=== PATIENT | male | born 1965 | race Caucasian/White ===

== ENCOUNTER 2018-08-11 20:22 | Observation (INO) | payer MEDICARE, OTHER ==
[2018-08-11 20:59] LABS: ADD MAN DIFF? NO
[2018-08-11 21:00] LABS: BASOPHILS % 0.2 % (0.0-2.0); EOSINOPHILS # 0.1 10^3/ul (0.0-0.5); EOSINOPHILS % 0.5 % (0.0-7.0); HEMATOCRIT 46.4 % (42.0-52.0); HEMOGLOBIN 14.2 g/dl (14.0-18.0); LYMPHOCYTES # 1.5 10^3/ul (0.8-2.9); LYMPHOCYTES % 15.1 % (15.0-51.0); MEAN CORPUSCULAR HEMOGLOBIN 28.7 pg (29.0-33.0); MEAN CORPUSCULAR HGB CONC 30.6 g/dl (32.0-37.0); MEAN CORPUSCULAR VOLUME 93.9 fl (82.0-101.0); MEAN PLATELET VOLUME 11.1 fl (7.4-10.4); MONOCYTE # 0.8 10^3/ul (0.3-0.9); MONOCYTES % 8.2 % (0.0-11.0); NEUTROPHIL # 7.3 10^3/ul (1.6-7.5); NEUTROPHILS % 75.6 % (39.0-77.0); PLATELET COUNT 220 10^3/UL (140-415); RED BLOOD COUNT 4.94 10^6/ul (4.70-6.10)
[2018-08-11 21:00] LABS: WHITE BLOOD COUNT 9.7 10^3/ul (4.8-10.8)
[2018-08-11 21:24] LABS: ANION GAP 8 (5-13); BLOOD UREA NITROGEN 33 mg/dl (7-20); CALCIUM 10.5 mg/dl (8.4-10.2); CARBON DIOXIDE 28 mmol/L (21-31); CHLORIDE 106 mmol/L (97-110); CREATININE 1.57 mg/dl (0.61-1.24); Estimated GFR 47 mL/min (>60); GLUCOSE 118 mg/dl (70-220); POTASSIUM 5.6 mmol/L (3.5-5.1); SODIUM 142 mmol/L (135-144)
[2018-08-11 21:36] LABS: TROPONIN-I 0.035 ng/ml (0.000-0.120)
[2018-08-12] MEDS ORDERED: NITROGLYCERIN (SL) 0.4 MG TAB SL
[2018-08-12] MEDS ORDERED: ONDANSETRON 4 MG INJ IV
[2018-08-12] MEDS ORDERED: ALBUTEROL/IPRATROPIUM (NEB) 3 ML AMP HHN
[2018-08-12] MEDS ORDERED: NACL 0.9% 3 ML SYG IV
[2018-08-12] MEDS ORDERED: ACETAMINOPHEN 325 MG TAB PO
[2018-08-12] MEDS: hydrALAzine 20 MG INJ IV (01:16)
[2018-08-12] MEDS: ALPRAZOLAM 1 MG TAB PO ×2 (01:16→11:37)
[2018-08-12] MEDS: NA POLYST SULFON 15 GM/60 ML BTL PO (01:36)
[2018-08-12 02:49] LABS: ADD MAN DIFF? NO
[2018-08-12 02:54] LABS: WHITE BLOOD COUNT 9.8 10^3/ul (4.8-10.8)
[2018-08-12 02:54] LABS: BASOPHILS % 0.3 % (0.0-2.0); EOSINOPHILS # 0.1 10^3/ul (0.0-0.5); EOSINOPHILS % 0.9 % (0.0-7.0); HEMATOCRIT 43.5 % (42.0-52.0); HEMOGLOBIN 13.4 g/dl (14.0-18.0); LYMPHOCYTES # 2.3 10^3/ul (0.8-2.9); LYMPHOCYTES % 23.5 % (15.0-51.0); MEAN CORPUSCULAR HGB CONC 30.8 g/dl (32.0-37.0); MEAN CORPUSCULAR VOLUME 94.2 fl (82.0-101.0); MEAN PLATELET VOLUME 11.5 fl (7.4-10.4); MONOCYTES % 9.8 % (0.0-11.0); NEUTROPHIL # 6.4 10^3/ul (1.6-7.5); NEUTROPHILS % 65.1 % (39.0-77.0); PLATELET COUNT 212 10^3/UL (140-415); RED BLOOD COUNT 4.62 10^6/ul (4.70-6.10); RED CELL DISTRIBUTION WIDTH 15.2 % (11.5-14.5)
[2018-08-12] MEDS: OXYCODONE/ACETAMINOPHEN (5/325) TAB PO (03:02)
[2018-08-12 03:11] LABS: ALANINE AMINOTRANSFERASE 25 IU/L (13-69); ALBUMIN 3.9 g/dl (3.3-4.9); ALBUMIN/GLOBULIN RATIO 1.56; ALKALINE PHOSPHATASE 91 IU/L (42-121); ANION GAP 7 (5-13); ASPARTATE AMINO TRANSFERASE 21 IU/L (15-46); BILIRUBIN,INDIRECT 0.3 mg/dl (0-1.1); BILIRUBIN,TOTAL 0.3 mg/dl (0.2-1.3); BLOOD UREA NITROGEN 31 mg/dl (7-20); CALCIUM 10.1 mg/dl (8.4-10.2); CARBON DIOXIDE 26 mmol/L (21-31); CHLORIDE 109 mmol/L (97-110); CHOL/HDL RATIO 2.1 RATIO; CHOLESTEROL 94 mg/dl (100-200); CREATININE 1.49 mg/dl (0.61-1.24); Estimated GFR 50 mL/min (>60); GLUCOSE 93 mg/dl (70-220); HDL CHOLESTEROL 43 mg/dl (28-71); LDL CHOLESTEROL,CALCULATED 35 mg/dl; POTASSIUM 4.6 mmol/L (3.5-5.1); SODIUM 142 mmol/L (135-144); TOTAL PROTEIN 6.4 g/dl (6.1-8.1); TRIGLYCERIDES 81 mg/dl (0-149)
[2018-08-12 03:13] LABS: CREATINE KINASE 42 IU/L (23-200)
[2018-08-12 03:25] LABS: CK INDEX 3.3; CK-MB 1.39 ng/ml (0.0-2.4); TROPONIN-I 0.055 ng/ml (0.000-0.120)
[2018-08-12 03:37] LABS: HEMOGLOBIN A1C 5.1 % (0-5.9)
[2018-08-12 08:50] LABS: CREATINE KINASE 34 IU/L (23-200)
[2018-08-12] MEDS: HEPARIN 5,000 UNIT/1 ML VIAL SC (09:00)
[2018-08-12 09:01] LABS: TROPONIN-I 0.073 ng/ml (0.000-0.120)
[2018-08-12 09:05] LABS: CK INDEX 4.7
[2018-08-12] MEDS: ASPIRIN 81 MG TAB PO (09:16)
[2018-08-12] MEDS ORDERED: CYCLOSPORINE MICROEMULS 100 MG CAP PO (11:00)
[2018-08-12] MEDS: ASPIRIN (EC) 81 MG TAB PO (11:00)
[2018-08-12] MEDS: CLOPIDOGREL 75 MG TAB PO (11:37)
[2018-08-12] MEDS ORDERED: CYCLOSPORINE MICROEMULS 25 MG CAP PO (12:30)
[2018-08-12] MEDS: LEVETIRACETAM 750 MG TAB PO (12:35)
[2018-08-12] MEDS: MYCOPHENOLATE 250 MG CAP PO (16:19)
[2018-08-12] MEDS: CYCLOSPORINE MICROEMULS 100 MG CAP PO (16:21)
[2018-08-12] MEDS: SOD CHLORIDE 0.9% 1,000 ML IV (16:25)
[2018-08-12] MEDS ORDERED: LANSOPRAZOLE 30 MG CAP PO (18:00)
[2018-08-12 19:12] LABS: ANION GAP 5 (5-13); BLOOD UREA NITROGEN 26 mg/dl (7-20); CALCIUM 9.2 mg/dl (8.4-10.2); CARBON DIOXIDE 24 mmol/L (21-31); CHLORIDE 109 mmol/L (97-110); Estimated GFR 58 mL/min (>60); GLUCOSE 95 mg/dl (70-220); POTASSIUM 4.6 mmol/L (3.5-5.1); SODIUM 138 mmol/L (135-144)
[2018-08-12] MEDS ORDERED: LORATADINE 10 MG TAB PO (21:00)
[2018-08-12] MEDS ORDERED: LUBIPROSTONE 24 MCG CAP PO (21:00)
[2018-08-12] MEDS ORDERED: NON-FORMULARY/PATIENT OWN MED (Levocetirizine Dihydrochloride (Xyzal) 5 MG) PO (21:00)
== END 2018-08-12 19:00 | disposition home or self-care (01) ==
LOC: TEL 23:35 → E/R 20:22 → TEL 22:05
DX: R07.9 Chest pain, unspecified (principal); G40.909 Epilepsy, unspecified, not intractable, without status epilepticus; E11.22 Type 2 diabetes mellitus with diabetic chronic kidney disease; I12.9 Hypertensive chronic kidney disease with stage 1 through stage 4 chronic kidney disease, or unspecified chronic kidney disease; N18.3 Chronic kidney disease, stage 3 (moderate); Z94.83 Pancreas transplant status; Z94.0 Kidney transplant status
CPT/HCPCS: 36415; 71045; 80048; 80053; 80061; 82550; 82553; 83036; 83735; 84443; 84484; 85025; 93005; 93306; 99217; 99285-25

== ENCOUNTER 2018-12-29 20:41 | Emergency (ER) | payer MEDICARE, OTHER ==
[2018-12-29 23:10] LABS: ADD MAN DIFF? NO
[2018-12-29 23:12] LABS: BASOPHILS % 0.4 % (0.0-2.0); EOSINOPHILS # 0.1 10^3/ul (0.0-0.5); EOSINOPHILS % 0.8 % (0.0-7.0); HEMATOCRIT 46.6 % (42.0-52.0); HEMOGLOBIN 14.7 g/dl (14.0-18.0); LYMPHOCYTES # 2.3 10^3/ul (0.8-2.9); LYMPHOCYTES % 20.8 % (15.0-51.0); MEAN CORPUSCULAR HEMOGLOBIN 29.9 pg (29.0-33.0); MEAN CORPUSCULAR HGB CONC 31.5 g/dl (32.0-37.0); MEAN CORPUSCULAR VOLUME 94.7 fl (82.0-101.0); MEAN PLATELET VOLUME 10.4 fl (7.4-10.4); MONOCYTE # 1.3 10^3/ul (0.3-0.9); MONOCYTES % 11.7 % (0.0-11.0); NEUTROPHIL # 7.2 10^3/ul (1.6-7.5); NEUTROPHILS % 65.9 % (39.0-77.0); PLATELET COUNT 242 10^3/UL (140-415); RED BLOOD COUNT 4.92 10^6/ul (4.70-6.10); RED CELL DISTRIBUTION WIDTH 14.5 % (11.5-14.5)
[2018-12-29 23:12] LABS: WHITE BLOOD COUNT 10.9 10^3/ul (4.8-10.8)
[2018-12-29] MEDS: LIDOCAINE 5% PATCH TD (23:19)
[2018-12-29] MEDS: LORAZEPAM 0.5 MG TAB PO (23:19)
[2018-12-29 23:30] LABS: ALANINE AMINOTRANSFERASE 27 IU/L (13-69); ALBUMIN 3.7 g/dl (3.3-4.9); ALBUMIN/GLOBULIN RATIO 1.15; ALKALINE PHOSPHATASE 89 IU/L (42-121); ANION GAP 6 (5-13); ASPARTATE AMINO TRANSFERASE 27 IU/L (15-46); BILIRUBIN,INDIRECT 0.5 mg/dl (0-1.1); BILIRUBIN,TOTAL 0.5 mg/dl (0.2-1.3); BLOOD UREA NITROGEN 29 mg/dl (7-20); CALCIUM 9.9 mg/dl (8.4-10.2); CARBON DIOXIDE 25 mmol/L (21-31); CHLORIDE 107 mmol/L (97-110); CREATININE 1.32 mg/dl (0.61-1.24); Estimated GFR 57 mL/min (>60); GLUCOSE 103 mg/dl (70-220); POTASSIUM 4.9 mmol/L (3.5-5.1); SODIUM 138 mmol/L (135-144); TOTAL PROTEIN 6.9 g/dl (6.1-8.1)
[2018-12-29 23:44] LABS: ADD UMIC YES; UR ASCORBIC ACID 40 mg/dL (NEGATIVE); UR BILIRUBIN (Dip) NEGATIVE (NEGATIVE); UR BLOOD (Dip) NEGATIVE (NEGATIVE); UR CLARITY CLEAR (CLEAR); UR COLOR YELLOW (YELLOW); UR GLUCOSE (Dip) NEGATIVE (NEGATIVE); UR KETONES (Dip) NEGATIVE (NEGATIVE); UR LEUKOCYTE ESTERASE (Dip) NEGATIVE Leu/ul (NEGATIVE); UR NITRITE (Dip) NEGATIVE (NEGATIVE); UR RBC 2 /HPF (0-5); UR TOTAL PROTEIN (Dip) 1+ mg/dl (NEGATIVE); UR UROBILINOGEN (Dip) 1+ mg/dL (NEGATIVE); UR WBC 1 /HPF (0-5)
[2018-12-30] MEDS: HYDROCODONE/APAP (5/325) TAB PO (00:31)
[2018-12-30] MEDS: hydrALAzine 20 MG INJ IV (00:31)
== END 2018-12-30 01:51 | disposition home or self-care (01) ==
LOC: E/R 12-30 01:51
DX: I10 Essential (primary) hypertension (principal); E11.9 Type 2 diabetes mellitus without complications; Z79.01 Long term (current) use of anticoagulants; Z79.82 Long term (current) use of aspirin
CPT/HCPCS: 36415; 72100; 72170; 80053; 81001; 85025; 96374; 99284-25